=== PATIENT | male | born 1995 | race Caucasian/White ===

== ENCOUNTER 2020-12-14 05:37 | Emergency (ER) | payer SELFPAY ==
[~2020-12-14] VITALS: Ht 185.4 cm; Wt 80.0 kg
[2020-12-14 05:40] VITALS: BP 153/89
--- NOTE | 2020-12-14 06:07 | NUR ---
Pt would not allow ED physician perform an assessment. Pt left AMA prior to signing forms. Pt was hostile and demanding to be let out of the Building.
== END 2020-12-14 06:10 | disposition left against medical advice (07) ==
LOC: ED 06:07
DX: N50.811 Right testicular pain (principal); R10.9 Unspecified abdominal pain
CPT/HCPCS: 99281